=== PATIENT | female | born 1940 | race Caucasian/White ===

== ENCOUNTER 2024-01-29 14:24 | Emergency (ER) | payer OTHER, SELFPAY ==
[2024-01-29 14:31] VITALS: BP 156/101
[2024-01-29 14:49] LABS: % Basophils 0.4 % (0-2); % Eosinophils 0.1 % (0-6); % Immature Granulocytes 0.3 % (0-0.5); % Lymphocytes 13.7 % (20.5-51.1); % Monocytes 7.5 % (1.7-9.3); Absolute Lymphocytes 1.2 10^3/uL (1.2-3.4); Absolute Monocytes 0.7 10^3/uL (0.1-0.6); Hematocrit 35.3 % (37.0-47.0); Hemoglobin 12.7 g/dL (12.0-16.0); Mean Corpuscular Hgb 33.2 pg (27.0-31.0); Mean Corpuscular Volume 92.4 fL (81.0-99.0); Mean Platelet Volume 9.2 fL (7.4-10.4); Nucleated Red Blood Cells % 0 %; Platelet Count 178 10^3/uL (130-400); Red Blood Cell Count 3.82 10^6/uL (4.20-5.40); Red Cell Dist. Width 12.3 % (11.5-14.5)
[2024-01-29 15:09] LABS: ALT (SGPT) 19 U/L (0-35); AST (SGOT) 40 U/L (14-36); Albumin 4.3 g/dl (3.5-5.0); Alkaline Phosphatase 90 U/L (38-126); Blood Urea Nitrogen 20 mg/dl (7-17); Calcium 9.1 mg/dl (8.4-10.2); Carbon Dioxide 28 mmol/L (22-30); Chloride 95 mmol/L (98-107); Glucose 110 mg/dl (70-99); Potassium 4.1 mmol/L (3.5-5.1); Sodium 129 mmol/L (135-145); Total Bilirubin 0.7 mg/dl (0.2-1.3); eGFR 49.86
[2024-01-29 15:13] LABS: Troponin I < 0.012 ng/ml
[2024-01-29 16:32] VITALS: BP 162/138
[2024-01-29 17:00] VITALS: BP 162/102
--- NOTE | 2024-01-29 17:05 | ED.GENMED ---
History of Present Illness
General
Chief Complaint: Breathing Problem
Source: patient and family
Time Seen by Provider: 01/29/24 16:38
Nursing documentation reviewed up to this point in time: agreed with
Travel History
Have you had any contact with someone who has COVID-19?: No
Do you have any symptoms of coronavirus? Fever > 100 degrees, chills, cough, shortness of breath, sore throat, loss of taste or smell, muscle aches, or headache?: No
History of Present Illness
History of Present Illness:
8-year-old female past medical history of COPD not on oxygen followed by bridge ironworker at [facility] presents to the ER complaining of cough for the past 4 days. She reports that she is weak and dizzy no appetite. She has been drinking
water. She denies any fevers patient was seen urgent care and sent to the ER for possible pneumonia. She was tested for COVID and influenza prior to arrival and was negative.
she quit smoking 2 yrs ago . She does use albuterol nebulizers as needed.
Review of Systems
Review of Systems
Allergies reviewed?: Yes
Other source history: family
All Other Systems: ROS reviewed and negative except as documented in HPI and ROS
Constitutional: Reports fatigue; Denies fever or chills
EENT: Reports no symptoms
Respiratory: Reports cough; Denies trouble breathing
Cardiac: Reports no symptoms
ABD/GI: Reports nausea and anorexia
: Reports no symptoms
Musculoskeletal: Reports no symptoms
Skin: Reports no symptoms
Neurological: Reports no symptoms
Psychiatric: Reports no symptoms
Phy Exam
General Physical Exam
General Presentation: no apparent distress
General age: appears stated age
General Skin: warm and dry
General Habitus: normal
General Mental: alert
General Hydration: dry mucous membranes
Cardiovascular Exam
Cardiovascular Exam: regular rate/rhythm, no murmur and normal peripheral pulses
Pulmonary Exam
Pulmonary Exam: other (+ cough rhonchi throughout )
Neurological Exam
Neurological Exam: alert and oriented x3
[place] Coma Scale
Eye Opening: Spontaneous
Verbal Response: Oriented
Motor Response: Obeys Commands
GCS Total Score: 15
Musculoskeletal Exam
Musculoskeletal Exam: full ROM
Skin Exam
Skin Exam: normal color and warm/dry
Scores
Heart Failure Risk
Heart Failure Risk Score: Not Applicable
Course
Orders/Labs/Results
Orders:
Orders
01/29/24 14:35
Electrocardiogram (*1) Urgent
Reason for Study: Other
Other Reason for Exam: Respiratory Distress
EKG- Treatment ONCE
01/29/24 14:42
Complete Blood Count/With Diff Urgent
Comprehensive Metabolic Panel Urgent
Troponin I Urgent
01/29/24 17:05
0.9% Sodium Chloride 1000 ml [Nss] 1,000 ml IV BOLUS
01/29/24 17:06
Albuterol Nebs [Ventolin Nebules] 2.5 mg INH R NOW STA
Ondansetron Injectable [Zofran] 4 mg IV NOW STA
01/29/24 17:51
Chest [CR Chest - 2 Views ] Urgent
Comment:
Reason For Exam: cough/sob
Abnormal Lab Results
01/29/24
14:42
RBC 3.82 L 10^6/uL
(4.20-5.40)
Hct 35.3 L %
(37.0-47.0)
MCH 33.2 H pg
(27.0-31.0)
Absolute Neuts (auto) 7.0 H 10^3/uL
(1.4-6.5)
Absolute Monos (auto) 0.7 H 10^3/uL
(0.1-0.6)
Neutrophils % 78.0 H %
(42.2-75.2)
Lymphocytes % 13.7 L %
(20.5-51.1)
Sodium 129 L mmol/L
(135-145)
Chloride 95 L mmol/L
(98-107)
BUN 20 H mg/dl
(7-17)
Creatinine 1.1 H mg/dL
(0.6-1.0)
Glucose 110 H mg/dl
(70-99)
AST 40 H U/L
(14-36)
01/29/24 14:42
01/29/24 14:42
Vital Signs
Initial and Last Documented VS:
Initial Vital Signs
Temp Pulse Resp BP Pulse Ox
99.6 F 78 16 156/101 96
01/29/24 14:31 01/29/24 14:31 01/29/24 14:31 01/29/24 14:31 01/29/24 14:31
Last Documented Vital Signs
Temp Pulse Resp BP Pulse Ox
99.6 F 82 20 152/88 95
01/29/24 14:31 01/29/24 18:00 01/29/24 18:00 01/29/24 18:00 01/29/24 18:00
MDM/Problems Addressed
MDM/Problems Addressed:
Patient is a 3-year-old female does have a history of COPD does not wear oxygen presents to the ER for evaluation of cough for the past several days. Patient denies any fever or chills. She has felt little weak not eating as she normally does.
She presents after being eval by urgent care for questionable pneumonia. She presents to the awake alert no acute distress lungs decreased throughout slight wheeze. Patient was given a nebulizer here she does have a nebulizer at home patient is
afebrile with a normal white count of 9.0
Sodium is slightly low at 129 BUN/creatinine 21.1. Patient was hydrated here patient wants to go home and is nontoxic. Case reviewed with ED attending will DC home patient with Fabio Blankenship she has nebulizer at home will give 4 more days of
steroid and discussed with patient and family close outpatient follow-up and recheck of sodium
Chronic conditions affecting care:
copd ,htn
*Radiology
Radiology exam reviewed: preliminary read by ED provider
*Pulse Oximetry
Patient hypoxic: no
*Critical Care Note
Total Time (30-74mins, 75-104mins- exclusive of procedures): Not Applicable
ED Attending Note
-
Portions of this chart may have been created with voice recognition software.� Occasional wrong word or��sound alike� substitutions may have occurred due to the inherent limitations of voice recognition software.
Discharge Plan
Departure
Patient Disposition: Home (Routine Discharge)
Date of Disposition: 01/29/24
Time of Disposition: 19:04
Patient with high blood pressure during this ER visit?: Yes
Condition: Fair
Covid-19: Not Applicable
Discharge Problem:
Acute bronchitis
Instructions: Acute Bronchitis, Adult (DC)
Prescriptions:
New
benzonatate 200 mg capsule
200 mg PO TID PRN (Reason: Cough) Qty: 10 0RF
prednisone 50 mg tablet
50 mg PO DAILY Qty: 4 0RF
Referrals:
Mendoza Willett, [Family Provider] -
Activity Restrictions/Additional Instructions:
As discussed use your albuterol nebulizer every 6 hours as needed. You may use cough medication every 8 hours as needed which was sent to your pharmacy. A prescription for steroids was also sent to your pharmacy daily to take for the next 4 days.
You were given the first dose of each medication here in the ER
As discussed your sodium level is low be sure to stay well-hydrated and have your follow-up with your family doctor for re-evaluation and and have your SODIUM level checked in the next several days. Return if any worsening of symptoms.
Interventions
Interventions:
*Risk Screen - Suicide Last Done: 01/29/24 17:21
*General Assessment Last Done: 01/29/24 17:21
*Neglect/Abuse Screening Last Done: 01/29/24 17:21
ED- Fall Risk Assessment Last Done: 01/29/24 17:21
*ED COVID-19 Vaccine History Last Done: 01/29/24 17:21
ED- Cardiac Assessment Last Done: 01/29/24 17:30
ED- Pulmonary Assessment Last Done: 01/29/24 17:30
Discharge Date and Time
Print Language: [id number]
[2024-01-29 17:21] VITALS: BMI 19.5
[2024-01-29] MEDS: ZOFRAN 4 MG IV (17:30)
[2024-01-29] MEDS: VENTOLIN NEBULES 2.5 MG INH (17:30)
[2024-01-29] MEDS: NSS 1000 IV (17:30)
[2024-01-29 17:41] VITALS: BP 158/95
[2024-01-29 18:00] VITALS: BP 152/88
[2024-01-29] MEDS: TESSALON PERLES 200 MG PO (19:26)
[2024-01-29] MEDS: DELTASONE 50 MG PO (19:26)
[2024-01-29 19:36] VITALS: BP 167/90
== END 2024-01-29 19:36 | disposition home or self-care (01) ==
LOC: EMR 14:24
PROVIDERS: Emergency Medicine; EMERGENCY PHYSICIAN Student in an Organized Health Care Education/Training Program; FAMILY PHYSICIAN Family Medicine
DX: J20.9 Acute bronchitis, unspecified (principal); I10 Essential (primary) hypertension; Z87.891 Personal history of nicotine dependence
CPT/HCPCS: 99285; 96374; 96361 ×2; 94640; 71046; 80053; 84484; 85025; 93005